=== PATIENT | male | born 1940 | race Two or more races ===

== ENCOUNTER 2021-07-08 23:51 | Emergency (ER) | payer OTHER ==
[~2021-07-08] VITALS: Ht 167.6 cm; Wt 68.0 kg
[2021-07-09] MEDS ORDERED: LIDOCAINE 2% (UROJET) 10 ML JELLY MM ONE ×2 (00:55→01:30)
[2021-07-09 01:13] LABS: *BILIRUBIN,URIN NEGATIVE (NEGATIVE); *BLOOD, URINE 3+ (NEGATIVE); *CLARITY,URINE CLOUDY (CLEAR); *COLOR,URINE RED (YELLOW); *KETONES,URINE NEGATIVE (NEGATIVE); *UROBILINOGEN,URINE 0.2 E.U./dl (NORMAL); LEUKOCYTE ESTERASE ,URINE TRACE (NEGATIVE); NITRITE, URINE NEGATIVE (NEGATIVE); UGLUCOSE NEGATIVE (NEGATIVE)
[2021-07-09 01:15] LABS: CARBON DIOXIDE 24 mmol/L (21-32); CHLORIDE 98 mmol/L (98-107); CREATININE 1.5 mg/dL (0.6-1.3); GLUCOSE 181 mg/dL (74-106); UREA NITROGEN, BLOOD 24 mg/dL (7-18)
[2021-07-09 01:16] LABS: HEMATOCRIT 40.4 % (36.7-47.1); MEAN CORPUSCULAR HEMOGLOBIN 32.5 uug (23.8-33.4); PLATELET COUNT (AUTO) 276 K/uL (152-348)
[2021-07-09 01:27] LABS: BACTERIA,URINE FEW /HPF (NONE SEEN); RBC,URINE TNTC /HPF (0-3)
[2021-07-09] MEDS ORDERED: CEFTRIAXONE 1 G in IV DEXTROSE 5% 50 ML IV ONE (03:45)
--- NOTE | 2021-07-09 03:56 | NUR ---
Called [facility] to admitted patient. Waiting for Lisandro CASTRO to call back.
[2021-07-09] MEDS ORDERED: CEFTRIAXONE /D5W 50ML IVPB **ER PYXIS IV ONE (04:07)
[2021-07-09 04:32] LABS: HEMATOCRIT 39.2 % (36.7-47.1); MEAN CORPUSCULAR HEMOGLOBIN 32.3 uug (23.8-33.4); MEAN CORPUSCULAR VOLUME 96.1 fL (73.0-96.2); PLATELET COUNT (AUTO) 249 K/uL (152-348)
--- NOTE | 2021-07-09 06:31 | NUR ---
Baldo from [facility] called to give transfer info. Patient will be going to [facility] ER, call for reeport is . Accepting MD is Dr Kruger. ETA of [facility] ambulance is [id number].
--- NOTE | 2021-07-09 06:40 | NUR ---
Gave SBAR report to Alysha Charge nurse from [facility].
[2021-07-09] MEDS ORDERED: ATOR80TA PO (06:50)
[2021-07-09] MEDS ORDERED: AMLO-212 PO (06:50)
[2021-07-09] MEDS ORDERED: PHEN100C4 PO (06:50)
[2021-07-09] MEDS ORDERED: ALLO100T PO (06:50)
[2021-07-09] MEDS ORDERED: TAMS-3 PO (06:50)
[2021-07-09] MEDS ORDERED: MIRT-119 PO (06:50)
[2021-07-09] MEDS ORDERED: QUET25TA PO (06:50)
--- NOTE | 2021-07-09 07:15 | NUR ---
Gave SBAR report to [facility] ambulance who will transport patient to [facility].
== END 2021-07-09 07:23 | disposition short-term general hospital (02) ==
LOC: ER 23:55
DX: R31.9 Hematuria, unspecified (principal); N21.0 Calculus in bladder; F09 Unspecified mental disorder due to known physiological condition; F03.90 Unspecified dementia, unspecified severity, without behavioral disturbance, psychotic disturbance, mood disturbance, and anxiety; R00.0 Tachycardia, unspecified; Z20.822 Contact with and (suspected) exposure to COVID-19; D72.829 Elevated white blood cell count, unspecified
CPT/HCPCS: 36415; 51702; 71045; 74176; 80048; 81001; 85025 ×2; 87040; 87086; 87426; 93005; 96365; 99285; J0696; 87077